=== PATIENT | female | born 1965 | race Caucasian/White ===

== ENCOUNTER → 2018-11-08 | Emergency (ER) | payer OTHER ==
[~2018-11-08] VITALS: Ht 157.5 cm; Wt 59.1 kg
[~2018-11-08] MED LIST: AZIT250T PO; CEFTRIAXONE 1 GM/50 ML (PMX) 50 ML IVPB STA; GENT5DRO28 LEFT EYE
[2018-11-08 08:41] VITALS: Ht 157.5 cm; Wt 59.1 kg
--- NOTE | 2018-11-08 09:45 | ERD ---
ER Documentation Chief Complaint Chief Complaint RIGHT EAR DRAINAGE, LEFT EYE DRAINAGE. SINUS CONGESTION. COUGH HPI 53-year-old female presents the emergency department by paramedics complaining of right ear pain, left eye redness and drainage, sinus congestion and a cough. Patient has a long-standing history of steroid dependent lupus. She states she has had the above symptoms for the last week or so. The cough is getting slig htly worse. She reports no difficulty breathing. She reports no visual acuity changes associated with the redness or drainage. ROS All systems reviewed and are negative except as per history of present illness. Medications Home Meds Active Scripts Gentamicin Sulfate* (Gentamicin Sulfate* Ophth) 0.3% - 5 Ml Drops, 1 DROP LEFT EYE Q4 for 7 Days, EA Prov:ELI JONES 11/08/18 Azithromycin* (Zithromax*) 250 Mg Tablet, 250 MG PO .ZPACK DIRECTED, #6 TAB TAKE 500 MG (2 TABS) THE FIRST DAY THEN 250 MG (1 TAB) DAYS 2-5 Prov:ELI JONES 11/08/18 PMhx/Soc History of Surgery: No Anesthesia Reaction: No Hx Neurological Disorder: No Hx Respiratory Disorders: Yes (COPD) Hx Cardiac Disorders: No Hx Psychiatric Problems: No Hx Miscellaneous Medical Probl: Yes (LUPUS) Hx Alcohol Use: No Hx Substance Use: No Hx Tobacco Use: Yes Smoking Status: Current every day smoker Physical Exam Vitals Vital Signs Date Temp Pulse Resp B/P (MAP) Pulse Ox O2 O2 Flow FiO2 Time Delivery Rate 11/08/18 97.7 89 20 120/80 97 08:41 (93) Physical Exam GENERAL: The patient is well developed and appropriate for usual state of health in no apparent distress HEENT: Pupils equal, round, and reactive to light. EOMI. There is no scleral icterus. TMs are normal bilaterally. There is a left eye conjunctivitis. No foreign bodies noted in the left eye, visual acuity is noted to be normal. There is no proptosis noted. NECK: C-spine is soft and supple, there is no meningismus. There is no cervical lymphadenopathy. LUNGS: Clear to auscultation bilaterally. There are no rales, wheezes or rhonchi. HEART: Regular rate and rhythm, no murmurs, clicks, rubs or gallops. ABDOMEN: Soft, non-tender, non-distended. There are bowel sounds in all four quadrants. No rebound or guarding. EXTREMITIES: There is no peripheral cyanosis or edema. No focal swelling or erythema. NEURO: The patient moves all four extremities with 5/5 strength. Cranial nerves II - XII are intact. Normal gait. Alert and oriented SKIN: There is no apparent rash or petechiae. HEME/LYMPHATIC: There is no evidence of excessive bruising or lymphedema. PSYCHIATRIC: The patient does not appear anxious or depressed. Result Diagram: 11/08/1890111/08/18901 Results 24 hrs Laboratory Tests Test 11/08/18 09:00 11/08/18 09:02 POC Venous Lactate 0.8 mmol/L White Blood Count 7.6 10^3/ul Red Blood Count 4.30 10^6/ul Hemoglobin 13.6 g/dl Hematocrit 41.8 % Mean Corpuscular Volume 97.2 fl Mean Corpuscular Hemoglobin 31.6 pg Mean Corpuscular Hemoglobin Concent 32.5 g/dl Red Cell Distribution Width 11.9 % Platelet Count 269 10^3/UL Mean Platelet Volume 10.0 fl Immature Granulocytes % 0.100 % Neutrophils % 64.8 % Lymphocytes % 20.6 % Monocytes % 9.5 % Eosinophils % 4.5 % Basophils % 0.5 % Nucleated Red Blood Cells % 0.0 /100WBC Immature Granulocytes # 0.010 10^3/ul Neutrophils # 4.9 10^3/ul Lymphocytes # 1.6 10^3/ul Monocytes # 0.7 10^3/ul Eosinophils # 0.3 10^3/ul Basophils # 0.0 10^3/ul Nucleated Red Blood Cells # 0.0 10^3/ul Sodium Level 143 mmol/L Potassium Level 4.1 mmol/L Chloride Level 108 mmol/L Carbon Dioxide Level 28 mmol/L Anion Gap 7 Blood Urea Nitrogen 14 mg/dl Creatinine 0.78 mg/dl Est Glomerular Filtrat Rate mL/min > 60 mL/min Glucose Level 98 mg/dl Calcium Level 9.5 mg/dl Total Bilirubin 0.1 mg/dl Direct Bilirubin 0.00 mg/dl Indirect Bilirubin 0.1 mg/dl Aspartate Amino Transf (AST/SGOT) 27 IU/L Alanine Aminotransferase (ALT/SGPT) 9 IU/L Alkaline Phosphatase 111 IU/L Total Protein 7.4 g/dl Albumin 4.0 g/dl Globulin 3.40 g/dl Albumin/Globulin Ratio 1.17 Current Medications Medications Dose Sig/Jesusita Start Time Status Last (Trade) Ordered Route PRN Stop Time Admin Dose Reason Admin Ceftriaxone 50 ml @ ONCE STAT 11/08/18 DC 11/08/18 Sodium 100 mls/hr IVPB 08:45 09:16 11/08/18 09:14 Procedures/MDM Patient was taken to a room, seen and evaluated. Comfort measures were initiated. Diagnostic tests were ordered and reviewed. RADIOLOGY: [reviewed with the radiologist] REEVALUATION: 09: Diagnostic tests were appreciated and discussed with the patient. Arrangements made for outpatient management. MEDICAL DECISION MAKIN-year-old steroid dependent patient presents the emergency department with symptoms of a conjunctivitis, sinusitis. X-ray has demonstrated no pneumonia. Patient does have a sinusitis that lasted over a week and given her immunocompromise state, she will require p.o. antibiotics. She appears clinically nontoxic with a lactate less than 2 and does not appear to be septic or dehydrated or any other high-risk concerns. She does appear to be appropriate for outpatient follow-up. Departure Diagnosis: Primary Impression: Sinusitis Additional Impression: Conjunctivitis Condition: Stable Patient Instructions: Conjunctivitis, Non-Specific, Sinusitis, Abx Tx Referrals: [facility] YOU HAVE RECEIVED A MEDICAL SCREENING EXAM AND THE RESULTS INDICATE THAT YOU DO NOT HAVE A CONDITION THAT REQUIRES URGENT TREATMENT IN THE EMERGENCY DEPARTMENT. FURTHER EVALUATION AND TREATMENT OF YOUR CONDITION CAN WAIT UNTIL YOU ARE SEEN IN YOUR DOCTORS OFFICE WITHIN THE NEXT 1-2 DAYS. IT IS YOUR RESPONSIBILITY TO MAKE AN APPOINTMENT FOR FOLOW-UP CARE. IF YOU HAVE A PRIMARY DOCTOR --you should call your primary doctor and schedule an appointment IF YOU DO NOT HAVE A PRIMARY DOCTOR YOU CAN CALL OUR PHYSICIAN REFERRAL HOTLINE AT IF YOU CAN NOT AFFORD TO SEE A PHYSICIAN YOU CAN CHOSE FROM THE FOLLOWING [facility] [address] [facility] [address] [facility] [address] [facility] [address] [facility] [place] [address] [facility]. [facility] [address] Additional Instructions: Please see your doctor if not better in the next few days ELI JONES Nov 08, 2018 09:45
[2018-11-08 09:58] VITALS: BP 115/74; PULSE 80; RESP 20
== END | disposition home or self-care (01) ==
LOC: E/R 08:35
DX: J32.9 Chronic sinusitis, unspecified (principal); H10.9 Unspecified conjunctivitis; J44.9 Chronic obstructive pulmonary disease, unspecified; F17.210 Nicotine dependence, cigarettes, uncomplicated
CPT/HCPCS: 36415; 71045; 80053; 83605; 85025; 87040; 96374; J0696; Z7502